=== PATIENT | female | born 2000 | race African-American/Black ===

== ENCOUNTER 2018-09-30 14:41 | Emergency (ER) | payer SELFPAY ==
[~2018-09-30] VITALS: Ht 165.1 cm; Wt 81.8 kg
[2018-09-30 14:49] VITALS: Ht 165.1 cm; Wt 81.8 kg
[2018-09-30] MEDS ORDERED: CLEOCIN HCL300 MG PO (15:18)
[2018-09-30] MEDS ORDERED: IBUPROFEN800 MG PO (15:18)
[2018-09-30 15:52] VITALS: BP 142/78
== END 2018-09-30 15:53 | disposition home or self-care (01) ==
LOC: D.ER 14:41
DX: L05.01 Pilonidal cyst with abscess (principal)

== ENCOUNTER 2019-02-04 12:00 | Emergency (ER) | payer SELFPAY ==
[~2019-02-04] VITALS: Ht 165.1 cm; Wt 88.6 kg
[~2019-02-04 12:00] MED LIST: CLEOCIN HCL300 MG PO; IBUPROFEN800 MG PO
[2019-02-04 12:12] VITALS: Ht 165.1 cm; Wt 88.6 kg
[2019-02-04 12:55] LABS: HCG SERUM NEGATIVE (NEGATIVE)
[2019-02-04 14:45] LABS: APPEARANCE CLEAR (CLEAR); BILIRUBIN NEGATIVE (NEGATIVE); COLOR YELLOW (YELLOW); GLUCOSE NEGATIVE (NEGATIVE); KETONE NEGATIVE (NEGATIVE); NITRITE NEGATIVE (NEGATIVE); PROTEIN NEGATIVE (NEGATIVE); UROBILINOGEN NORMAL (NORMAL)
[2019-02-04] MEDS ORDERED: BACLOFEN20 M1 PO (15:18)
[2019-02-04] MEDS ORDERED: VOLTAREN75 MG PO (15:18)
[2019-02-04 15:56] VITALS: BP 138/66
== END 2019-02-04 15:57 | disposition home or self-care (01) ==
LOC: D.ER 12:00
PROVIDERS: Family Medicine
DX: M54.5 Low back pain (principal)